=== PATIENT | female | born 1950 | race Caucasian/White ===

== ENCOUNTER 2019-01-28 19:28 | Emergency (ER) | payer MEDICARE, OTHER ==
--- NOTE | 2019-01-28 20:24 | ED Physician Documentation ---
History of Present Illness - Stated complaint Stated Complaint: LT LEG MASS - Chief complaint Chief Complaint: Ext Problem - History obtained from History obtained from: Patient - History of Present Illness Timing: How many days ago (symptoms were clearly present and worsening since 3-4 days ago, although she says she felt a fullness in left calf as far back as October 2018 (was seen at [facility] at that time), and felt this was more prominent and faint redness in November 2018 (again seen at [facility]). However, the swelling and redness became definitely present and worsening over past several days. She was evaluated at [facility] 2 days ago, had US (patient says it demonstrated no clots were present) and rx keflex. Presents at this time due to worsening swelling, redness, and area involved (was limited to mid/upper left calf, now spreading towards ankle)) Pain level now: 2 Improved by: activity seems to improve the discomfort Worsened by: discomfort seems to be worse after prolonged rest Review of Systems Constitutional: denies: Fever, Chills, Sweats Skin: reports: Rash Musculoskeletal: reports: Extremity pain, Extremity swelling. denies: Joint pain, Joint swelling Neurologic: denies: Focal weakness, Numbness PD PAST MEDICAL HISTORY - Past Medical History Past Medical History: Yes Cardiovascular: Hypertension Endocrine/Autoimmune: HyPOthyroidism - Past Surgical History Past Surgical History: No - Present Medications Home Medications: Ambulatory Orders Medication Instructions Recorded Confirmed Cephalexin [Keflex] 1 cap BID 01/28/19 01/28/19 Clindamycin HCl [Clindamycin 300MG 300 mg PO Q6H #28 capsule 01/28/19 CAP] Levothyroxine Sodium [Synthroid] 1 tab ORAL DAILY 01/28/19 01/28/19 Lisinopril 1 tab ORAL DAILY 01/28/19 01/28/19 hydroCHLOROthiazide 1 tab ORAL DAILY 01/28/19 01/28/19 [Hydrochlorothiazide] - Allergies Allergies/Adverse Reactions: Allergies Allergy/AdvReac Type Severity Reaction Status Date / Time acetaminophen [From Vicodin] Allergy Hives Verified 01/28/19 19:50 hydrocodone [From Vicodin] Allergy Hives Verified 01/28/19 19:50 latex Allergy Hives Verified 01/28/19 19:50 Sulfa (Sulfonamide Allergy Hives Verified 01/28/19 19:50 Antibiotics) PD ED PE NORMAL - Vitals Vital signs reviewed: Yes - General General: Alert and oriented X 3, No acute distress, Well developed/nourished - Extremities Extremities: Normal ROM s pain PD ED PE EXPANDED - Extremities NATHAN LE visual: 1 - rash (confluent, flat erythema with sharp margins. warmer to touch than surrounding (normal) skin), swelling Results - Vitals Vitals: Vital Signs - 24 hr 01/28/19 01/28/19 19:41 21:03 Temperature 37 C 36.5 C Heart Rate 100 88 Respiratory 16 16 Rate Blood Pressure 132/79 H 123/77 O2 Saturation 98 97 Oxygen O2 Source Room air PD MEDICAL DECISION MAKING - ED course Complexity details: considered differential, d/w patient ED course: Suspect bacterial cellulitis without evidence of purulence/abscess. She has had a little over 2 days of keflex and symptoms and area involved have been worsening today and this evening; adding bactrim would likely give the extra coverage needed, but she is allergic to sulfa. Will have her discontinue keflex and change to clindamycin Departure - Departure Disposition: 01 Home, Self Care Clinical Impression: Cellulitis Qualifiers: Site of cellulitis: extremity Site of cellulitis of extremity: lower extremity Laterality: left Qualified Code(s): L03.116 - Cellulitis of left lower limb Condition: Good Instructions: ED Infec Skin Cellulitis Follow-Up: OSCAR LEROY [Primary Care Provider] - (2-3 days if not improving) Prescriptions: Clindamycin HCl [Clindamycin 300MG CAP] 300 mg PO Q6H #28 capsule Comments: Discontinue the keflex (cephalexin), and start the clindamycin as prescribed. Discharge Date/Time: 01/28/19 21:12
[2019-01-28] MEDS ORDERED: CLINDAMYCIN 150 MG CAPSULE PO STA (20:44)
[2019-01-28 21:04] VITALS: BP 123/77
== END 2019-01-28 21:12 | disposition home or self-care (01) ==
LOC: ED 19:28
DX: L03.116 Cellulitis of left lower limb (principal); I10 Essential (primary) hypertension; E03.9 Hypothyroidism, unspecified
CPT/HCPCS: 99283; A9270